=== PATIENT | male | born 1980 | race African-American/Black ===

== ENCOUNTER 2016-12-06 07:51 | Day surgery (SDC) | payer OTHER ==
[2016-12-02 12:37] LABS: ABSOLUTE LYMPHOCYTES (AUTO) 1.1 10^3/uL (0.5-4.7); ABSOLUTE MONOCYTES (AUTO) 0.5 10^3/uL (0.1-1.4); ABSOLUTE NEUT (AUTO) 1.8 10^3/uL (1.7-8.2); BASOPHILS % (AUTO) 0.4 % (0-2); EOSINOPHILS % (AUTO) 0.6 % (0-6); HEMATOCRIT 38.8 % (37.9-51.0); HEMOGLOBIN 12.1 g/dL (13.5-17.0); HGB HCT DIFFERENCE -2.5; LYMPHOCYTES % (AUTO) 33.6 % (13-45); MEAN CORPUSCULAR HEMOGLOBIN 22.2 pg (27.0-33.4); MEAN CORPUSCULAR HGB CONC 31.2 g/dL (32.0-36.0); MEAN CORPUSCULAR VOLUME 71 fl (80-97); MONOCYTES % (AUTO) 13.4 % (3-13); RED BLOOD COUNT 5.45 10^6/uL (4.35-5.55); RED CELL DISTRIBUTION WIDTH 13.2 % (11.5-14.0); WHITE BLOOD COUNT 3.4 10^3/uL (4.0-10.5)
[2016-12-02 12:44] LABS: APPEARANCE,URINE CLEAR; BILIRUBIN,URINE NEGATIVE (NEGATIVE); GLUCOSE, URINE NEGATIVE (NEGATIVE); KETONES,URINE NEGATIVE (NEGATIVE); LEUKOCYTE ESTERASE,URINE NEGATIVE (NEGATIVE); NITRITE,URINE NEGATIVE (NEGATIVE); PROTEIN,URINE NEGATIVE (NEGATIVE); URINE SPECIFIC GRAVITY 1.018; UROBILINOGEN,URINE NEGATIVE mg/dL (<2.0)
[2016-12-02 13:02] LABS: ANION GAP 13 (5-19); BLOOD UREA NITROGEN 9 mg/dL (7-20); CALCIUM 9.7 mg/dL (8.4-10.2); CARBON DIOXIDE 26 mmol/L (22-30); CHLORIDE 105 mmol/L (98-107); CREATININE RESULT 0.87 mg/dL (0.52-1.25); GLUCOSE 94 mg/dL (75-110); SODIUM 143.6 mmol/L (137-145)
[~2016-12-06 07:51] MED LIST: BUPIVACAINE HCL 0.5 % INJ/PF 30 ML SDV ONE; CEFAZOLIN 2 GM/D5W RTU 2 GM/50 ML RTUPB IV PRN; LACTATED RINGERS 1000 ML IV PRN
[2016-12-06] MEDS ORDERED: FENTANYL CITRATE INJ/PF 100 MCG/2 ML AMPUL ONE (08:25)
[2016-12-06] MEDS ORDERED: MIDAZOLAM 2 MG/2 ML INJ ONE (08:25)
[2016-12-06] MEDS ORDERED: PROPOFOL INJ 200 MG/20 ML VIAL IV ONE (08:26)
[2016-12-06] MEDS ORDERED: ACETAMINOPHEN 100 ML IV ONE (08:26)
[2016-12-06] MEDS ORDERED: OXYCODONE-ACETAMINOPHEN 5-325 MG TABLET PO PRN ×3 (09:02→10:21)
[2016-12-06] MEDS ORDERED: ONDANSETRON HCL INJ/PF 4 MG/2 ML SDV IV PRN ×2 (09:02→10:21)
[2016-12-06] MEDS ORDERED: MORPHINE SULFATE 10 MG/ML INJ IV PRN ×2 (09:02→10:21)
[2016-12-06] MEDS ORDERED: DIPHENHYDRAMINE HCL 50 MG/ML VIAL IV PRN (09:02)
[2016-12-06] MEDS ORDERED: FENTANYL CITRATE INJ/PF 100 MCG/2 ML AMPUL IV PRN ×3 (09:02)
[2016-12-06] MEDS ORDERED: MEPERIDINE HCL/PF INJ 25 MG/1 ML DISP.SYRIN IV PRN (09:02)
[2016-12-06] MEDS ORDERED: PROMETHAZINE HCL INJ 25 MG/1 ML VIAL IV PRN ×2 (09:02)
--- NOTE | 2016-12-06 10:33 | Operative Report ---
Operative Report PREOPERATIVE DIAGNOSIS: Left Wrist Lunotriquetral Tear POSTOPERATIVE DIAGNOSIS: Left Wrist Partial Lunotrquetral Tear w/ Loose Body OPERATION: Left Wrist Arthroscopy w/ loose body, synovectomy. Closed reduction percutaneous pinning lunotriquetral interval SURGEON: OVI GARZA ANESTHESIA: GA COMPLICATIONS: None ESTIMATED BLOOD LOSS: Minimal PROCEDURE: Indication for above procedure: 36-year-old male who sustained an injury to his left wrist. Patient attempted conservative measures including anti-inflammatories, injections and activity modification without resolution of his symptoms. Patient had MRI demonstrating possible partial tear of the lunotriquetral ligament which coincided with location of patient's pain. At that point joint decision was made to proceed with operative intervention. Risks and benefits were explained patient verbalized understanding consented for the procedure. Procedure In Detail: Patient was seen and evaluated in the preoperative holding area. The LEFT upper extremity was initialized and marked. Patient received 2g of Ancef IV for bacterial prophylaxis. Patient was taken back to the operative room where transferred to the operative table and placed under general anesthesia. Once they were adequately anesthetized a nonsterile tourniquet was placed on the upper extremity. A surgical team debriefing was performed ensuring all instrumentation was available, the surgical procedure was discussed with possible concerns reviewed. The upper extremity was prepped with chlorhexidine and alcohol and draped in a sterile fashion. A timeout was done identifying correct patient, procedure and extremity everyone in attendance agree with this and verbalized no concerns. Patient was placed in the Acumed wrist distractor at 15 pounds. The extremity was exsanguinated the tourniquet was inflated to 250 mmHg. A 3-4 portal was localized with an 18-gauge needle and then established. Blunt dissection was performed with a hemostat. Arthroscope was introduced into the radiocarpal articulation. Dry arthroscopy was performed. There is no evidence of disruption of the RSC, longer short radiolunate ligaments. No evidence of chondral damage or degenerative changes. Inspection of the ulnar aspect of the wrist was performed. No definitive tear was appreciated I then triangulated and established a R-U portal again blunt dissection was performed and a probe introduced. There was inflammation along the prestyloid recess. With palpation there remains some trampoline effect of the TFCC however it was less than typically observed but no tear could be identified with probing. I then performed a synovectomy along the prestyloid recess no further pathology was located within the proximal wrist joint and then turned my attention to the midcarpal joint A midcarpal radial portal was established once again blunt dissection and the arthroscope was introduced. Triangulation established a ulnar midcarpal portal. Upon probing the scapholunate ligament there is no evidence of instability. There was a free-floating bone fragment loosely attached to volar capsule at the lunotriquetral interval. With instability of the lunotriquetral interval to the width of a probe but negative drive-through sign. Patulence was noted along the volar lunotriquetral interval. No degenerative changes were appreciated. The volar loose body was then removed in its entirety. Gentle debridement was performed along the volar lunotriquetral interval. The area was then debrided with the ablator. There was intact ligamentous structure to the dorsal aspect of the lunotriquetral interval. Given the instability and proceeded with percutaneous pinning of the lunotriquetral interval. With C-arm fluoroscopy to 0.62 K wires were placed from the triquetrum into the lunate maintaining reduction lunotriquetral interval. Lateral view demonstrated normal capitate lunate angle. I then once again explored the midcarpal joint to confirm reduction of the LT interval. The incisions were then closed with interrupted 4-0 nylon suture. 20 cc of 0.5% Marcaine with epinephrine was injected for postoperative pain control. Ends were cut and bent and left above the skin. Wound was dressed with Xeroform 4 x 4's and patient was placed in a dorsal blocking plaster splint. Tourniquet was deflated. Patient had good peripheral perfusion. Sponge counts, instrument counts, needle counts counts were correct. Patient was then awoken from anesthesia. Transferred from the operating room table to the operating room stretcher. There was no intraoperative complications patient tolerated procedure well stable to PACU. Postoperative plan: Patient followed in the office in 2 weeks at which point we will transition him into a cast for an additional 4 weeks. Plan will be for pin removal at the 6 week postoperative vannessa. Radiographic follow-up visit.
--- NOTE | 2016-12-06 10:34 | PDOC DISCHARGE SUMMARY ---
Discharge Summary (SDC) - Discharge Final Diagnosis: Partial lunotriquetral ligament tear Date of Surgery: 12/06/16 Discharge Date: 12/06/16 Condition: Good Treatment or Instructions: Schedule Follow Up w/ Dr. Moncho Nick @ [facility] to be seen in 10-14 days or as scheduled Freeman: Hoffmeister: Irwin: Keep splint clean/dry/intact. Ice and elevate May begin finger range of motion attempting to make full fist. Stool softener of choice when on pain medication. Prescriptions: Oxycodone HCl/Acetaminophen [Percocet 5-325 mg Tablet] 1 - 2 tab PO ASDIR PRN # 50 tablet PRN Reason: Discharge Diet: As Tolerated Respiratory Treatments at Home: Deep Breathing/Coughing Discharge Activity: No Lifting Over 10 Pounds, No Lifting/Push/Pulling Report the Following to Your Physician Immediately: Fever over 101 Degrees, Unusual Bleeding, Redness, Swelling, Warmth, Increased Soreness
[2016-12-06] MEDS ORDERED: IBUPROFEN INJ 800 MG/8 ML VIAL IV ONE (10:54)
--- NOTE | 2016-12-06 12:07 | RADIOLOGY REPORT (SQ) ---
EXAM DESCRIPTION: WRIST LEFT 2 VIEWS COMPLETED DATE/TIME: 12/06/2016 11:42 am REASON FOR STUDY: PERC PINNING S63.502A UNSPECIFIED SPRAIN OF LEFT WRIST, INITIAL ENCOUNTER COMPARISON: None. NUMBER OF VIEWS: Five views. TECHNIQUE: AP, lateral, and oblique radiographic images acquired of the left wrist. LIMITATIONS: None. FINDINGS: MINERALIZATION: Normal. BONES: 5 images obtained with the C-arm demonstrate placement of 2 pins across the triquetrum and sisi ate. SOFT TISSUES: No soft tissue swelling. No foreign body. OTHER: No other significant finding. IMPRESSION: Wrist pinning as described. TECHNICAL DOCUMENTATION: JOB ID: [id number] [employer]- All Rights Reserved
[2016-12-06 12:24] VITALS: BP 124/83
[2016-12-06] MEDS ORDERED: LIDOCAINE 2% INJ-PF (20 MG/ML) 10 ML AMPUL ONE (13:13)
[2016-12-06] MEDS ORDERED: ONDANSETRON HCL INJ/PF 4 MG/2 ML SDV ONE (13:13)
[2016-12-06] MEDS ORDERED: GLYCOPYRROLATE INJ 0.4 MG/2 ML VIAL ONE (13:13)
[2016-12-06] MEDS ORDERED: DEXAMETHASONE SOD PHOSPHATE INJ 4 MG/1 ML VIAL ONE (13:13)
[2016-12-06] MEDS ORDERED: SUCCINYLCHOLINE CHLORIDE INJ 200 MG/10 ML VIAL ONE (13:13)
== END 2016-12-06 12:25 | disposition home or self-care (01) ==
LOC: OROUT 07:51
PROVIDERS: ATTEND Orthopaedic Surgery
PROC: 0RSPXZZ Reposition Left Wrist Joint, External Approach (ICD-10-PCS; 2016-12-06)
PROC: 0RBP4ZZ Excision of Left Wrist Joint, Percutaneous Endoscopic Approach (ICD-10-PCS; principal; 2016-12-06 10:45)
PROC: 0RC Upper Joints, Extirpation (ICD-10-PCS; 2016-12-06 10:45)
DX: M24.032 Loose body in left wrist (principal); M25.332 Other instability, left wrist; M19.032 Primary osteoarthritis, left wrist; S63.502A Unspecified sprain of left wrist, initial encounter; X58.XXXA Exposure to other specified factors, initial encounter; Z79.899 Other long term (current) drug therapy; Z79.1 Long term (current) use of non-steroidal anti-inflammatories (NSAID)
CPT/HCPCS: 36415; 85025; 80048; 81001; 73100; 29844; 29999; 25690; C1769; J2250; J1100; J3010; J0330; J2405; J2704; J3490; J0690; J0131; J1741; 01830